=== PATIENT | female | born 1980 | race Caucasian/White ===

== ENCOUNTER 2019-06-30 09:39 | Inpatient (IN) | payer OTHER ==
[2019-06-30] MEDS ORDERED: NACL 0.9% 3 ML SYG IV (10:30)
[2019-06-30] MEDS ORDERED: ONDANSETRON 4 MG INJ IV ×2 (10:30→18:00)
[2019-06-30] MEDS ORDERED: morphine 2 MG INJ IV (10:30)
[2019-06-30 11:01] LABS: ADD MAN DIFF? NO
[2019-06-30 11:06] LABS: WHITE BLOOD COUNT 7.5 10^3/ul (4.8-10.8)
[2019-06-30 11:06] LABS: BASOPHIL # 0.1 10^3/ul (0.0-0.1); BASOPHILS % 0.7 % (0.0-2.0); HEMATOCRIT 41.1 % (37.0-47.0); HEMOGLOBIN 13.4 g/dl (12.0-16.0); LYMPHOCYTES # 1.7 10^3/ul (0.8-2.9); LYMPHOCYTES % 23.2 % (15.0-51.0); MEAN CORPUSCULAR HEMOGLOBIN 26.9 pg (29.0-33.0); MEAN CORPUSCULAR HGB CONC 32.6 g/dl (32.0-37.0); MEAN CORPUSCULAR VOLUME 82.4 fl (82.0-101.0); MEAN PLATELET VOLUME 11.1 fl (7.4-10.4); MONOCYTE # 0.6 10^3/ul (0.3-0.9); MONOCYTES % 8.3 % (0.0-11.0); NEUTROPHILS % 67.7 % (39.0-77.0); PLATELET COUNT 251 10^3/UL (140-415); RED BLOOD COUNT 4.99 10^6/ul (4.20-5.40); RED CELL DISTRIBUTION WIDTH 14.7 % (11.5-14.5)
[2019-06-30 11:16] LABS: HEMOGLOBIN A1C 5.1 % (0-5.9)
[2019-06-30 11:29] LABS: AMYLASE 87 U/L (11-123)
[2019-06-30 11:29] LABS: LIPASE 75 U/L (23-300)
[2019-06-30 11:31] LABS: ALANINE AMINOTRANSFERASE 291 IU/L (13-69); ALBUMIN 3.8 g/dl (3.3-4.9); ALBUMIN/GLOBULIN RATIO 1.15; ALKALINE PHOSPHATASE 150 IU/L (42-121); ANION GAP 6 (5-13); ASPARTATE AMINO TRANSFERASE 367 IU/L (15-46); BILIRUBIN,INDIRECT 1.3 mg/dl (0-1.1); BILIRUBIN,TOTAL 1.3 mg/dl (0.2-1.3); BLOOD UREA NITROGEN 8 mg/dl (7-20); CALCIUM 8.7 mg/dl (8.4-10.2); CARBON DIOXIDE 27 mmol/L (21-31); CHLORIDE 106 mmol/L (97-110); CHOL/HDL RATIO 3.4 RATIO; CHOLESTEROL 136 mg/dl (100-200); CREATININE 0.51 mg/dl (0.44-1.00); Estimated GFR > 60 mL/min (>60); GLUCOSE 97 mg/dl (70-220); HDL CHOLESTEROL 39 mg/dl (34-88); LDL CHOLESTEROL,CALCULATED 81 mg/dl; POTASSIUM 3.9 mmol/L (3.5-5.1); SODIUM 139 mmol/L (135-144); TOTAL PROTEIN 7.1 g/dl (6.1-8.1); TRIGLYCERIDES 81 mg/dl (0-149)
[2019-06-30] MEDS: SOD CHLORIDE 0.9% 1,000 ML IV ×2 (12:34→20:27)
[2019-06-30] MEDS: PIPER-TAZO 3.375 GM IV (PMX) 100 ML IVPB ×2 (12:39→20:59)
[2019-06-30 15:37] LABS: ADD UMIC NO; UR ASCORBIC ACID NEGATIVE (NEGATIVE); UR BILIRUBIN (Dip) 1+ mg/dL (NEGATIVE); UR BLOOD (Dip) NEGATIVE (NEGATIVE); UR CLARITY CLEAR (CLEAR); UR COLOR AMBER (YELLOW); UR GLUCOSE (Dip) NEGATIVE (NEGATIVE); UR KETONES (Dip) NEGATIVE (NEGATIVE); UR LEUKOCYTE ESTERASE (Dip) NEGATIVE Leu/ul (NEGATIVE); UR NITRITE (Dip) NEGATIVE (NEGATIVE); UR SPECIFIC GRAVITY (Dip) 1.026 (1.003-1.030); UR TOTAL PROTEIN (Dip) NEGATIVE (NEGATIVE); UR UROBILINOGEN (Dip) 2+ mg/dL (NEGATIVE)
[2019-06-30] MEDS ORDERED: IOHEXOL 300MG/ML 30 ML BTL (16:53)
[2019-06-30] MEDS: INDOMETHACIN 50 MG SUPP PR (17:30)
[2019-06-30] MEDS ORDERED: LIDOCAINE 2% (SDV) 5 ML INJ (17:44)
[2019-06-30] MEDS ORDERED: MIDAZOLAM 1 MG/ML 2 ML INJ (17:44)
[2019-06-30] MEDS ORDERED: SUCCINYLCHOLINE CHLORIDE 100 MG/5 ML SYG IV (17:44)
[2019-06-30] MEDS ORDERED: PROPOFOL 20 ML (17:44)
[2019-06-30] MEDS ORDERED: PROCHLORPERAZINE 10 MG INJ IV (18:00)
[2019-06-30] MEDS ORDERED: HYDROmorphONE 1 MG/5 ML IV SYRINGE IV ×3 (18:00)
[2019-06-30] MEDS ORDERED: LABETALOL HCL 20MG INJ IV (18:00)
[2019-06-30] MEDS ORDERED: MEPERIDINE 25 MG INJ IV (18:00)
[2019-06-30] MEDS ORDERED: hydrALAzine 20 MG INJ IV (18:00)
[2019-06-30] MEDS ORDERED: DIPHENHYDRAMINE 50 MG INJ IV (18:00)
[2019-06-30] MEDS ORDERED: FENTAnyl 50 MCG/ML VIAL IV (18:00)
[2019-06-30] MEDS ORDERED: ONDANSETRON 4 MG INJ (18:15)
[2019-06-30] MEDS ORDERED: DEXAMETHASONE 4 MG/ML 5 ML INJ (18:15)
[2019-06-30] MEDS ORDERED: FENTAnyl 50 MCG/ML VIAL (18:19)
[2019-06-30] MEDS: ACETAMINOPHEN 325 MG TAB PO (20:59)
[2019-06-30] MEDS: LORAZEPAM 2 MG INJ IV ×2 (21:54→22:23)
[2019-07-01] MEDS: PIPER-TAZO 3.375 GM IV (PMX) 100 ML IVPB ×3 (03:00→12:00)
[2019-07-01 05:07] LABS: ADD MAN DIFF? NO
[2019-07-01 05:12] LABS: BASOPHILS % 0.2 % (0.0-2.0); HEMATOCRIT 43.7 % (37.0-47.0); HEMOGLOBIN 14.4 g/dl (12.0-16.0); LYMPHOCYTES # 0.8 10^3/ul (0.8-2.9); LYMPHOCYTES % 15.4 % (15.0-51.0); MEAN CORPUSCULAR HEMOGLOBIN 26.8 pg (29.0-33.0); MEAN CORPUSCULAR VOLUME 81.2 fl (82.0-101.0); MEAN PLATELET VOLUME 11.5 fl (7.4-10.4); MONOCYTE # 0.1 10^3/ul (0.3-0.9); MONOCYTES % 1.3 % (0.0-11.0); NEUTROPHIL # 4.5 10^3/ul (1.6-7.5); NEUTROPHILS % 82.7 % (39.0-77.0); PLATELET COUNT 270 10^3/UL (140-415); RED BLOOD COUNT 5.38 10^6/ul (4.20-5.40); RED CELL DISTRIBUTION WIDTH 14.2 % (11.5-14.5)
[2019-07-01 05:12] LABS: WHITE BLOOD COUNT 5.5 10^3/ul (4.8-10.8)
[2019-07-01 05:34] LABS: ANION GAP 10 (5-13); BLOOD UREA NITROGEN 8 mg/dl (7-20); CALCIUM 9.2 mg/dl (8.4-10.2); CARBON DIOXIDE 24 mmol/L (21-31); CHLORIDE 106 mmol/L (97-110); CREATININE 0.54 mg/dl (0.44-1.00); Estimated GFR > 60 mL/min (>60); GLUCOSE 131 mg/dl (70-220); SODIUM 140 mmol/L (135-144)
[2019-07-01] MEDS: SOD CHLORIDE 0.9% 1,000 ML IV (06:04)
== END 2019-07-01 13:40 | disposition home or self-care (01) | DRG 446 ==
LOC: MS1 09:39
PROC: 0FC98ZZ Extirpation of Matter from Common Bile Duct, Via Natural or Artificial Opening Endoscopic (ICD-10-PCS; principal; 2019-06-30 17:00)
PROC: 0F798DZ Dilation of Common Bile Duct with Intraluminal Device, Via Natural or Artificial Opening Endoscopic (ICD-10-PCS; 2019-06-30 17:00)
PROC: BF10YZZ Fluoroscopy of Bile Ducts using Other Contrast (ICD-10-PCS; 2019-06-30 17:00)
DX: K80.70 Calculus of gallbladder and bile duct without cholecystitis without obstruction (principal); R74.0 Nonspecific elevation of levels of transaminase and lactic acid dehydrogenase [LDH]
CPT/HCPCS: 74181; 74330; 78226; 80048; 80053; 80061; 81003; 82150; 83036; 83690; 83735; 84703; 85025; 87086